=== PATIENT | female | born 1965 | race Caucasian/White ===

== ENCOUNTER 2017-02-25 08:27 | Emergency (ER) | payer OTHER ==
[~2017-02-25] VITALS: Ht 165.1 cm; Wt 85.7 kg
[2017-02-25 09:34] LABS: BASOPHIL COUNT 0.1 K/uL (0-0.1); EOSINOPHIL (%) 2.5 % (0-5); EOSINOPHIL COUNT 0.2 K/uL (0-0.3); HEMATOCRIT 38.1 % (36.0-46.0); IMMATURE GRANULOCYTE (%) 0.2 % (0.0-0.7); INSTRUMENT ABS NEUTROPHIL CT 5.3 K/uL; LYMPHOCYTE COUNT 1.9 K/uL (1.0-2.8); MCH 28.3 PG (29.0-34.0); MCHC 33.6 G/DL (30.0-36.0); MCV 84.3 FL (83-99); MEAN PLAT.VOLUME 10.4 uM^3 (9.5-12.4); MONOCYTE (%) 8.5 % (3-12); MONOCYTE COUNT 0.7 K/uL (0-0.8); NEUTROPHIL (%) 65.3 % (45-76); NEUTROPHIL COUNT 5.3 K/uL (1.8-6.4); PLATELET COUNT 347 K/uL (156-360); RBC DIS.WIDTH-CV 11.7 % (11.8-14.6); RBC DIS.WIDTH-SD 35.7 % (39-53); RED BLOOD COUNT 4.52 M/uL (3.80-5.20); WHITE BLOOD COUNT 8.2 K/uL (4.1-10.2)
[2017-02-25 09:44] LABS: CHLORIDE 104 mEq/L (99-109); POTASSIUM 3.9 mEq/L (3.7-5.4); SODIUM 136 mEq/L (136-147)
[2017-02-25 09:46] LABS: GLUCOSE 98 mg/dL (70-99)
[2017-02-25 09:48] LABS: ANION GAP 10 MEQ/L (2-14); TOTAL BILIRUBIN 0.4 mg/dL (0.0-1.0)
[2017-02-25 09:50] LABS: ALKALINE PHOSPHATASE 44 IU/L (3-129); GFR ESTIMATE (CALCULATED) > 59 mL/min/
[2017-02-25 09:51] LABS: UREA NITROGEN (BUN) 14 mg/dL (9-23)
[2017-02-25 11:28] VITALS: BP 170/115
== END 2017-02-25 11:28 | disposition home or self-care (01) ==
LOC: EME 08:27
PROVIDERS: Emergency Medicine
DX: I10 Essential (primary) hypertension (principal); R00.2 Palpitations; E03.9 Hypothyroidism, unspecified
CPT/HCPCS: 80053; 85025; 93005; 99281; 99285; J0360

== ENCOUNTER 2018-01-20 15:59 | Observation (INO) | payer OTHER ==
[~2018-01-20] VITALS: Ht 165.1 cm; Wt 76.9 kg
[2018-01-20 17:13] LABS: HEMATOCRIT 39.9 % (36.0-46.0); HEMOGLOBIN 13.9 G/DL (11.9-15.5); MCH 29.8 PG (29.0-34.0); MCHC 34.8 G/DL (30.0-36.0); MCV 85.4 FL (83-99); PLATELET COUNT 320 K/uL (156-360); RBC DIS.WIDTH-CV 12.4 % (11.8-14.6); RBC DIS.WIDTH-SD 38.2 % (39-53); RED BLOOD COUNT 4.67 M/uL (3.80-5.20); WHITE BLOOD COUNT 12.6 K/uL (4.1-10.2)
[2018-01-20 17:23] LABS: ALBUMIN 4.3 g/dL (3.2-4.8)
[2018-01-20 17:24] LABS: CHLORIDE 103 mEq/L (99-109); POTASSIUM 4.2 mEq/L (3.7-5.4); SODIUM 135 mEq/L (136-147)
[2018-01-20 17:26] LABS: GLUCOSE 98 mg/dL (70-99); TOTAL PROTEIN 7.6 g/dL (6.4-8.3)
[2018-01-20 17:28] LABS: TOTAL BILIRUBIN 0.3 mg/dL (0.0-1.0)
[2018-01-20 17:29] LABS: ALKALINE PHOSPHATASE 49 IU/L (3-129)
[2018-01-20 17:30] LABS: CREATININE 0.7 mg/dL (0.6-1.3); GFR ESTIMATE (CALCULATED) > 59 mL/min/
[2018-01-20 17:31] LABS: AST (GOT) 21 IU/L (2-34); UREA NITROGEN (BUN) 12 mg/dL (9-23)
[2018-01-20 17:33] LABS: ALT (GPT) 26 IU/L (3-49); LIPASE 13 U/L (1.0-51.0)
[2018-01-20 17:42] LABS: QUANTITATIVE HCG < 4.0 MIU/ML
[2018-01-20 18:40] LABS: APPEARANCE CLEAR ((CLEAR)); BILIRUBIN NEGATIVE; BLOOD LARGE; COLOR YELLOW ((YELLOW)); GLUCOSE (STRIP) NEGATIVE; KETONES NEGATIVE; LEUKOCYTES NEGATIVE; NITRITE NEGATIVE; PROTEIN (STRIP) NEGATIVE; SPECIFIC GRAVITY 1.021 (1.000-1.030); UROBILINOGEN 0.2 MG/DL (0.2-1.0)
[2018-01-20 18:59] LABS: BACTERIA RARE /HPF; EPITHELIAL CELLS RARE /HPF; MUCUS TRACE /LPF; RED BLOOD CELLS TNTC /HPF (0-5); UCUL ADDED? YES; WHITE BLOOD CELLS 0-5 /HPF (0-5)
[2018-01-20 19:04] LABS: TROP-I INTERPRETATION NEGATIVE; TROPONIN-I < 0.01 ng/mL (0.0-0.30)
[2018-01-20] MEDS ORDERED: LISINOPRIL10 MG PO (22:53)
[2018-01-20] MEDS ORDERED: SYNTHROID112 MCG PO (22:53)
[2018-01-20] MEDS ORDERED: FLONASE16 G1 BOTH NARES (22:54)
[2018-01-20] MEDS ORDERED: METOPROLOL SUCC50 MG PO (22:55)
[2018-01-20] MEDS ORDERED: OMEPRAZOLE40 M1 PO (22:56)
[2018-01-20] MEDS ORDERED: MONONESSA1 EACH PO (22:56)
[2018-01-20] MEDS ORDERED: MELATONIN10 M1 PO (22:57)
[2018-01-20] MEDS ORDERED: ZYRTEC10 M3 PO (22:57)
[2018-01-20 23:54] VITALS: BP 169/80
[2018-01-21 04:02] VITALS: BP 116/62
[2018-01-21 07:47] VITALS: BP 141/77
[2018-01-21 14:55] VITALS: BP 141/78
[2018-01-21 20:16] VITALS: BP 145/79
[2018-01-22 00:43] VITALS: BP 126/69
[2018-01-22 04:23] VITALS: BP 145/74
[2018-01-22 07:55] VITALS: BP 127/70
[2018-01-22 09:01] LABS: HEMATOCRIT 37.6 % (36.0-46.0); HEMOGLOBIN 12.4 G/DL (11.9-15.5); MCH 29.1 PG (29.0-34.0); MCV 88.3 FL (83-99); PLATELET COUNT 304 K/uL (156-360); RBC DIS.WIDTH-CV 12.9 % (11.8-14.6); RBC DIS.WIDTH-SD 41.4 % (39-53); RED BLOOD COUNT 4.26 M/uL (3.80-5.20); WHITE BLOOD COUNT 10.3 K/uL (4.1-10.2)
[2018-01-22 09:26] LABS: ALBUMIN 3.9 G/DL (3.2-4.8); ALKALINE PHOSPHATASE 40 IU/L (3-129); ALT (GPT) 44 IU/L (3-49); AST (GOT) 33 IU/L (2-34); CHLORIDE 106 MEQ/L (99-109); CREATININE 0.6 MG/DL (0.6-1.3); GFR ESTIMATE (CALCULATED) > 59 mL/min/; GLUCOSE 104 mg/dL (70-99); LIPASE 7 U/L (1.0-51.0); POTASSIUM 4.1 MEQ/L (3.7-5.4); SODIUM 140 MEQ/L (136-147); TOTAL BILIRUBIN 0.5 MG/DL (0.0-1.0); TOTAL PROTEIN 6.1 G/DL (6.4-8.3); UREA NITROGEN (BUN) 5 mg/dL (9-23)
[2018-01-22] MEDS ORDERED: COLACE100 MG PO (10:47)
[2018-01-22] MEDS ORDERED: PERCOCET 5/31 TABLET PO (10:47)
[2018-01-22 11:36] VITALS: BP 135/67
== END 2018-01-22 12:36 | disposition home or self-care (01) ==
LOC: EME 15:59 → 2EAST 22:37 → EDOF 22:37 → ENRESERV 22:38 → 2EAST 23:45
PROVIDERS: Physician Assistant Surgical
DX: K80.12 Calculus of gallbladder with acute and chronic cholecystitis without obstruction (principal); K66.0 Peritoneal adhesions (postprocedural) (postinfection); I10 Essential (primary) hypertension; E03.9 Hypothyroidism, unspecified
CPT/HCPCS: 76705; 80053; 81003; 83690; 84484; 84702; 85027; 87086; 88304; 93005; 99281; 99285; G0378; J0295; J0744; J1100; J1170; J1200; J1650; J1885; J2250; J2405; J2710; J7050; S0020